=== PATIENT | female | born 1970 | race African-American/Black ===

== ENCOUNTER → 2020-07-31 | Outpatient (CLI) | payer OTHER ==
[~2020-07-31] MED LIST: BETAMETHASONE DISODIUM PHOS 6 MG/ML VIAL ONE; IOPAMIDOL 200 MG/ML 20 ML VIAL IT ONE
[2020-07-31 10:19] LABS: INR 0.9; PROTHROMBIN TIME 12.7 seconds (11.9-14.5)
== END ==
LOC: DX 09:10
PROVIDERS: ATTEND Orthopaedic Surgery Orthopaedic Surgery of the Spine
DX: M54.16 Radiculopathy, lumbar region (principal)
CPT/HCPCS: 36415; 81025; 85014; 85049; 85610; 85730; J0720; Q9967

== ENCOUNTER → 2020-10-10 | Outpatient (CLI) | payer OTHER ==
[~2020-10-10] MED LIST changes: -IOPAMIDOL 200 MG/ML 20 ML VIAL IT ONE; +IOPAMIDOL 300 MG/ML 15ML VIAL IT ONE; +LIDOCAINE HCL 1% LOCAL INJ 20 ML VIAL ONE; +SODIUM CHLORIDE 0.9% 250ML 250 ML ONE
== END ==
LOC: DX 09:02
PROVIDERS: ATTEND Orthopaedic Surgery Orthopaedic Surgery of the Spine
DX: M54.16 Radiculopathy, lumbar region (principal)
CPT/HCPCS: 81025; J0720; J2001; J7050; Q9967

== ENCOUNTER → 2023-11-17 | Day surgery (SDC) | payer OTHER ==
[~2023-11-17] MED LIST changes: +ACYCLOVIR800 MG PO; -BETAMETHASONE DISODIUM PHOS 6 MG/ML VIAL ONE; +BUPROPION XL150 MG PO; +CYCLOBENZAPRINE10 MG PO; +CYMBALTA30 MG PO; +DYRENIUM50 MG PO; +FUROSEMIDE40 MG PO; -IOPAMIDOL 300 MG/ML 15ML VIAL IT ONE; +LEVOTHYROXINE50 MCG PO; -LIDOCAINE HCL 1% LOCAL INJ 20 ML VIAL ONE; +LOSARTAN-HCTZ1 EACH PO; +LYRICA75 MG PO; +METOPROLOL SUCC25 MG PO; +NABUMETONE500 MG PO; +OMEPRAZOLE40 MG PO; +OZEMPIC0.25 MG/02 SC; +POTASSIUM CHLO20 ME1 PO; +PROPOFOL IV EMULSION 10 MG/ML 50 ML VIAL IV ONE; +ROSUVASTATIN CA10 MG PO; -SODIUM CHLORIDE 0.9% 250ML 250 ML ONE; +SUCRALFATE1 GM PO; +ULTRAM 50MG50 MG PO; +VENTOLIN HFA18 GM INH
[2023-11-17] MEDS: LACTATED RINGER'S 1,000 ML ONE (11:08)
[2023-11-17 13:30] VITALS: TEMP 97.5
[2023-11-17 13:45] VITALS: BP 130/79; PULSE 74; RESP 14; O2SAT 95
== END | disposition home or self-care (01) ==
LOC: OR 09:01
PROVIDERS: ATTEND Internal Medicine Gastroenterology
DX: R19.5 Other fecal abnormalities (principal); K64.8 Other hemorrhoids; K21.9 Gastro-esophageal reflux disease without esophagitis; Z71.3 Dietary counseling and surveillance; Z78.9 Other specified health status; E66.01 Morbid (severe) obesity due to excess calories; I10 Essential (primary) hypertension; E78.5 Hyperlipidemia, unspecified; E11.9 Type 2 diabetes mellitus without complications; E03.9 Hypothyroidism, unspecified; G89.29 Other chronic pain; F11.20 Opioid dependence, uncomplicated; F41.9 Anxiety disorder, unspecified; F32.A Depression, unspecified; Z79.85 Long-term (current) use of injectable non-insulin antidiabetic drugs; Z79.899 Other long term (current) drug therapy
CPT/HCPCS: 45378; 93005; J2704; J7121